=== PATIENT | male | born 1985 | race Caucasian/White ===

== ENCOUNTER 2019-12-09 11:11 | Observation (INO) | payer OTHER ==
[~2019-12-09] VITALS: Ht 177.8 cm; Wt 91.0 kg
[2019-12-09 11:39] LABS: Source, Urine Clean Catch
[2019-12-09 11:47] LABS: BASOPHILS ABSOLUTE AUTO 0.07 K/mm3 (0.00-0.23); BASOPHILS PERCENT AUTO 1 % (0-2); EOSINOPHILS ABSOLUTE AUTO 0.12 K/mm3 (0.00-0.68); EOSINOPHILS PERCENT AUTO 2 % (0-6); Hematocrit 46.6 % (37.0-53.0); Hemoglobin 15.9 g/dL (13.5-17.5); IMMATURE GRAN ABSOLUTE AUTO 0.02 K/mm3 (0.00-0.10); IMMATURE GRAN PERCENT AUTO 0 % (0-1); LYMPHOCYTES PERCENT AUTO 20 % (21-46); MONOCYTES ABSOLUTE AUTO 0.46 K/mm3 (0.16-1.47); MONOCYTES PERCENT AUTO 7 % (4-13); Mean Corpuscular HGB 31.9 pg (26.0-34.0); Mean Corpuscular HGB Conc 34.1 g/dL (31.5-36.5); Mean Corpuscular Volume 94 fL (80-100); NEUTROPHILS ABSOLUTE AUTO 4.48 K/mm3 (1.96-9.15); NEUTROPHILS PERCENT AUTO 69 % (41-73); Platelet Count 160 K/mm3 (150-400); RDW Coefficient Variation 12.6 % (11.7-14.2); RDW Standard Deviation 42.9 fL (35.1-46.3); Red Blood Cell Count 4.98 M/mm3 (4.30-5.90); White Blood Cell Count 6.45 K/mm3 (4.00-11.30)
[2019-12-09 11:49] LABS: Mean Platelet Volume 13.3 fL (9.1-12.4)
[2019-12-09 11:52] LABS: Bilirubin, Urine Neg (Neg); Blood, Urine Neg (Neg); Glucose Qualitative, Urine 4+ (Neg); Ketones, Urine 3+ (Neg); Leukocyte Esterase, Urine Neg (Neg); Nitrite, Urine Neg (Neg); Protein, Urine Neg (Neg); Urobilinogen, Urine NORM (Normal)
[2019-12-09 12:00] LABS: Appearance, Urine Clear (Clear); Color, Urine Yellow (P-Yellow)
[2019-12-09 12:04] LABS: Alanine Aminotransfer (ALT/SGP 53 U/L (12-78); Albumin, Blood 4.2 g/dL (3.4-5.0); Alk Phos 98 U/L (50-136); Anion Gap 10 mmol/L (6-16); Aspartate Aminotrans (AST/SGOT 23 U/L (12-37); Bilirubin, Total 0.5 mg/dL (0.1-1.0); Blood Urea Nitrogen 30 mg/dL (8-24); Bun/Creatinine Ratio 30.2 (12.0-20.0); CO2, Blood 26 mmol/L (21-32); Calcium, Blood 9.7 mg/dL (8.5-10.1); Chloride, Blood 96 mmol/L (98-108); Creatinine, Blood 0.99 mg/dL (0.60-1.20); Glomerular Filtration Rate >60 (60-); Potassium, Blood 4.6 mmol/L (3.5-5.5); Sodium, Blood 132 mmol/L (136-145); Total Protein, Blood 8.2 g/dL (6.4-8.2)
[2019-12-09 12:07] LABS: Glucose, Blood 793 mg/dL (70-99)
--- NOTE | 2019-12-09 14:59 | NUR ---
1349 PT ADMITTED TO EMDICAL FLOOR VIA [place]. A&OX4, INDEPENDENT IN ROOM. 1400 CBG 355. IV FLUIDS STARTED, LOVENOX AND LANTUS GIVEN PER ORDER, TN REFUSED FLU VACCINE. PT DENIES PAIN, SOB, N/V. WATER, AND CHEESE AND CRACKERS GIVEN FOR SNACK. CBG TO BE RECHECKED BEFORE DINNER AND THEN Q4H.
--- NOTE | 2019-12-09 17:52 | NUR ---
SHIFT SUMMARY. CBG DECREASING SLOWLY, PT REPORTS OVERALL FEELING BETTER AT THIS TIME. APPETITE INCREASING. IV FLUIDS INFUSING. PT DENIES SOB, N/V, AND PAIN. NO NEW CHANGES OR CONCERNS.
--- NOTE | 2019-12-10 01:33 | NUR ---
PT STATED HE WAS HUNGRY AROUND 2030. I INSTRUCTED PT TO WAIT A LITTLE LONGER UNTIL 2100 WHEN THE NEXT BLOOD SUGAR READING WAS DUE SO HE DOESN'T GET FALSE READINGS. BLOOD SUGAR OF 255 AT 2111. PT GIVEN A LIGHT SANDWITCH TO COMBAT HUNGER. 0127 BLOOD SUGAR READING OF 314. PT STATED HE FEELS "EXHAUSTED". WILL CONTINUE TO MONITOR.
[2019-12-10 04:53] LABS: BASOPHILS ABSOLUTE AUTO 0.05 K/mm3 (0.00-0.23); BASOPHILS PERCENT AUTO 1 % (0-2); EOSINOPHILS PERCENT AUTO 4 % (0-6); Hematocrit 38.6 % (37.0-53.0); Hemoglobin 13.2 g/dL (13.5-17.5); IMMATURE GRAN ABSOLUTE AUTO 0.01 K/mm3 (0.00-0.10); IMMATURE GRAN PERCENT AUTO 0 % (0-1); LYMPHOCYTES ABSOLUTE AUTO 2.18 K/mm3 (0.84-5.20); LYMPHOCYTES PERCENT AUTO 45 % (21-46); MONOCYTES ABSOLUTE AUTO 0.25 K/mm3 (0.16-1.47); MONOCYTES PERCENT AUTO 5 % (4-13); Mean Corpuscular HGB 31.5 pg (26.0-34.0); Mean Corpuscular HGB Conc 34.2 g/dL (31.5-36.5); Mean Corpuscular Volume 92 fL (80-100); Mean Platelet Volume 12.8 fL (9.1-12.4); NEUTROPHILS PERCENT AUTO 45 % (41-73); Platelet Count 128 K/mm3 (150-400); RDW Coefficient Variation 12.6 % (11.7-14.2); Red Blood Cell Count 4.19 M/mm3 (4.30-5.90); White Blood Cell Count 4.89 K/mm3 (4.00-11.30)
[2019-12-10 05:15] LABS: Beta-hydroxybutyrate 5.4 mg/dL (0.2-2.8); Magnesium, Blood 1.7 mg/dL (1.6-2.4)
[2019-12-10 05:24] LABS: Alanine Aminotransfer (ALT/SGP 41 U/L (12-78); Albumin, Blood 2.9 g/dL (3.4-5.0); Alk Phos 64 U/L (50-136); Anion Gap 6 mmol/L (6-16); Aspartate Aminotrans (AST/SGOT 13 U/L (12-37); Bilirubin, Total 0.3 mg/dL (0.1-1.0); Blood Urea Nitrogen 20 mg/dL (8-24); Bun/Creatinine Ratio 23.3 (12.0-20.0); CO2, Blood 24 mmol/L (21-32); Chloride, Blood 107 mmol/L (98-108); Creatinine, Blood 0.86 mg/dL (0.60-1.20); Glomerular Filtration Rate >60 (60-); Glucose, Blood 316 mg/dL (70-99); Potassium, Blood 4.1 mmol/L (3.5-5.5); Sodium, Blood 137 mmol/L (136-145); Total Protein, Blood 5.9 g/dL (6.4-8.2)
--- NOTE | 2019-12-10 07:22 | NUR ---
[employer]KER SUMMARY PT SLEPT OKAY DURING THE NIGHT. HE STATES HE FEELS VERY EXHAUSTED. NS RUNNING AT 150 ML/HR. SEE PREVIOUS NURSING NOTES. NO ACUTE CHANGES.
[2019-12-10] MEDS ORDERED: METF500 PO (12:42)
[2019-12-10] MEDS ORDERED: GLIP5 PO (12:42)
--- NOTE | 2019-12-10 13:45 | NUR ---
SHIFT SUMMARY. 1253 PT DISCHARGED HOME VIA TAXI, PT ESCORTED TO ENTRANCE BY THIS RN. IV REMOVED. D/C PAPERWORK REVIEWED WITH PT AND COPY PROVIDED. DIABETIC EDUCATION BY [employer]OWER AND THIS RN COMPLETED, WRITTEN EDUCATION PROVIDED. RN EDUCATED PT ON USE OF GLUCOMETER THAT WAS PROVIDED BY [employer] [facility] [facility]. NEW RX CALLED IN TO [facility] IN [place] PER PT REQUEST INCLUDING ORDERS FOR MONITOR STRIPS AND LANCETS. NEW PT PACKETS PROVIDED, PT INSTRUCTED TO ESTABLISH CARE WITH PCP WITHIN ONE WEEK.
== END 2019-12-10 12:54 | disposition home or self-care (01) ==
LOC: ER 11:11 → MEDS 11:12 → ENPENDDIS 12-10 11:30 → MEDS 12-10 12:54
PROVIDERS: Emergency Medicine; ADMIT Internal Medicine
DX: E11.65 Type 2 diabetes mellitus with hyperglycemia (principal); Z79.84 Long term (current) use of oral hypoglycemic drugs; Z87.891 Personal history of nicotine dependence
CPT/HCPCS: 36415; 80053; 81003; 82010; 82947; 83036; 83735; 84443; 85025; 96360; 96361; 96372; 99285-25; G0378; J1650; J1815; J7030